=== PATIENT | female | born 2000 | race Caucasian/White ===

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

== ENCOUNTER 2020-11-07 04:08 | Emergency (ER) | payer MEDICAID, OTHER ==
[~2020-11-07] VITALS: Ht 167.6 cm; Wt 50.0 kg
[2020-11-07 04:14] VITALS: BP 123/81
[2020-11-07] MEDS ORDERED: CEFTRIAXONE 250 MG ONE (05:20)
[2020-11-07] MEDS ORDERED: AZITHROMYCIN 250 MG TABLET ONE (05:21)
[2020-11-07 05:30] LABS: HCG UR SG 1.021 (1.003-1.030); MICROSCOPIC AUTO
[2020-11-07] MEDS ORDERED: AZITHROMYCIN 500 MG TABLET PO ONE (05:30)
[2020-11-07] MEDS ORDERED: CEFTRIAXONE 250 MG IM ONE (05:30)
--- NOTE | 2020-11-07 05:58 | NUR ---
Patient given discharge instructions and they have confirmed that they understand the instructions. Patient ambulatory with steady gait.
[2020-11-07 06:45] LABS: CLUE CELLS NONE SEEN (NONE SEEN); WET PREP WBCS NONE SEEN (FEW)
== END 2020-11-07 05:59 | disposition home or self-care (01) ==
LOC: ED 05:19
DX: N30.00 Acute cystitis without hematuria (principal); B00.9 Herpesviral infection, unspecified; F41.9 Anxiety disorder, unspecified
CPT/HCPCS: 81001; 81025; 87086; 87210; 87491; 87591; 87808; 96372; 99283; J0696

== ENCOUNTER 2021-01-10 11:22 | Emergency (ER) | payer MEDICAID ==
[~2021-01-10] VITALS: Ht 167.6 cm; Wt 52.0 kg
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
[2021-01-10 13:15] VITALS: BP 112/70
== END 2021-01-10 13:17 | disposition home or self-care (01) ==
LOC: ED 11:43
DX: S93.491A Sprain of other ligament of right ankle, initial encounter (principal); W01.0XXA Fall on same level from slipping, tripping and stumbling without subsequent striking against object, initial encounter; Y93.01 Activity, walking, marching and hiking; Y92.410 Unspecified street and highway as the place of occurrence of the external cause; Y99.8 Other external cause status
CPT/HCPCS: 29515; 99283